=== PATIENT | female | born 1940 | race Caucasian/White ===

== ENCOUNTER → 2019-04-26 | Outpatient (CLI) | payer MEDICARE ==
--- NOTE | 2019-04-26 16:18 | BD ---
EXAMINATION TYPE: Axial Bone Density DATE OF EXAM: 04/26/2019 COMPARISON: NONE CLINICAL HISTORY: 78-year-old female disorder of bone Height: 61.5 Weight: 146.9 FRAX RISK QUESTIONS: Alcohol (3 or more units per day): no Family History (Parent hip fracture): no Glucocorticoids (More than 3mos): no (Ex: prednisone, prednisolone, methylprednisolone, dexamethasone, and hydrocortisone). History of Fracture in Adulthood: yes Secondary Osteoporosis: 1. Type 1 Diabetes: no 2. Hyperthyroidism: no 3. Menopause before 45:yes 4. Malnutrition: no 5. Chronic liver disease: no Rheumatoid Arthritis: no Current Tobacco Use: no RISK FACTORS HISTORY OF: History of Wrist Fracture: left wrist When: 10 years ago Surgery to Spine/Hip(right/left)/Wrist (right/left): left hip replaced When: 8 years ago Family History of Osteoporosis: no Active: yes Diet low in dairy products/other sources of calcium: no Postmenopausal woman: hysterectomy age 30 MEDICATIONS: blood pressure meds x2, cholesterol meds Additional History: EXAM MEASUREMENTS: Bone mineral densitometry was performed using the [employer] System. Bone mineral density as measured about the Lumbar spine is: ----- L1-L4(G/cm2): 1.068 T Score Values are as follows: ----- L2: -0.7 ----- L3: -0.8 ----- L4: -1.6 ----- L1-L4: -0.9 Bone mineral density has: increased 1.5 % since study of: 07.25.2014 Bone mineral density about the L hip (g/cm2): 0.773 T Score values are as follows: -----L Neck: -1.9 -----L Total: -1.5 Bone mineral density has: decreased -1.2 % since study of: 07.25.2014 IMPRESSION: Osteopenia (T Score between -2.5 and -1). There is slightly increased risk of fracture and the patient may be considered for treatment. Re-Screen 2-5 years. NOTE: T-SCORE=SD OF THE YOUNG ADULT MEAN.
--- NOTE | 2019-04-30 10:24 | MM ---
Reason for exam: screening (asymptomatic). Last mammogram was performed 4 years and 9 months ago. History: Patient is postmenopausal and is nulliparous. Physical Findings: A clinical breast exam by your physician is recommended on an annual basis and results should be correlated with mammographic findings. MG 3D Screening Mammo W/Cad Bilateral CC and MLO view(s) were taken. XCCL view(s) were taken of the right breast. Prior study comparison: July 25, 2014, bilateral MG screening mammo w CAD. February 10, 2012, bilateral digital screening mammo w/CAD. There is chronic nodularity in the right breast. No significant changes when compared with prior studies. ASSESSMENT: Benign, BI-RAD 2 RECOMMENDATION: Routine screening mammogram of both breasts in 1 year.
== END | disposition home or self-care (01) ==
LOC: RADMAMWWP 12:36
PROVIDERS: ATTEND Internal Medicine
DX: Z12.31 Encounter for screening mammogram for malignant neoplasm of breast (principal); M85.89 Other specified disorders of bone density and structure, multiple sites
CPT/HCPCS: 77063; 77067; 77080

== ENCOUNTER 2019-09-12 00:55 | Emergency (ER) | payer MEDICARE ==
[2019-09-12 01:02] VITALS: TEMP 98.1
--- NOTE | 2019-09-12 01:08 | ED ---
Chest Pain HPI - General Chief Complaint: Chest Pain Stated Complaint: Chest Pain Time Seen by Provider: 09/12/19 01:06 Source: patient Mode of arrival: ambulatory Limitations: no limitations - History of Present Illness Initial Comments: That he is a pleasant 79-year-old female with no cardiac history who presents to the ER today for evaluation of epigastric and chest discomfort. Patient reports that she was in her usual state of health throughout the day today, she states that she went to bed and she felt some discomfort in her epigastrium and ret rosternal area, she felt some nausea and like she needed to belch. She states this lasted about 15 minutes she got up and walked around it did seem to improve however this is a very atypical thing for her she doesn't usually have any acid reflux or GI symptoms. She has no history of heart problems. She said to come the ER to be evaluated. - Related Data Home Medications Medication Instructions Recorded Confirmed Valsartan/Hydrochlorothiazide 1 tab PO DAILY 10/05/14 10/05/14 [Valsartan-Hctz 160-12.5 mg Tab] Allergies Allergy/AdvReac Type Severity Reaction Status Date / Time amoxicillin Allergy Rash/Hives Verified 09/12/19 01:03 codeine Allergy Nausea & Verified 09/12/19 01:02 Vomiting Review of Systems ROS Statement: Those systems with pertinent positive or pertinent negative responses have been documented in the HPI. ROS Other: All systems not noted in ROS Statement are negative. EKG Findings - EKG Comments: EKG Findings:: EKG was obtained due to complaint of chest discomfort, EKG was obtained at 1:08 AM, rate is a fire rhythm is sinus there is a normal axis, normal intervals NH 166 QRS is 102 QTc is [address] elevations or depressions no evidence of acute ischemia or infarction. Past Medical History Past Medical History: Hyperlipidemia, Hypertension History of Any Multi-Drug Resistant Organisms: None Reported Past Surgical History: Hysterectomy, Orthopedic Surgery Additional Past Surgical History / Comment(s): SHRADDHA KNEE, RT HIP Past Psychological History: No Psychological Hx Reported Smoking Status: Never smoker Past Alcohol Use History: None Reported Past Drug Use History: None Reported General Exam - General Exam Comments Initial Comments: Physical Exam GENERAL: Patient is well-developed and well-nourished. Patient is nontoxic and well- hydrated and is in no distress. HENT: Normocephalic, Atraumatic. EYES: PERRL, EOMI PULMONARY: Unlabored respirations. No audible rales rhonchi or wheezing was noted. CARDIOVASCULAR: There is a regular rate and rhythm without any murmurs gallops or rubs. ABDOMEN: Soft and nontender with normal bowel sounds. SKIN: Skin is clear with no lesions or rashes and otherwise unremarkable. : Deferred NEUROLOGIC: Patient is alert and oriented x3. Moving all extremities spontaneously MUSCULOSKELETAL: Normal extremities with adequate strength and full range of motion. No lower extremity swelling or edema. No calf tenderness. PSYCHIATRIC: Normal psychiatric evaluation. Limitations: no limitations Course Vital Signs 09/12/19 09/12/19 00:59 03:41 Temperature 98.1 F Pulse Rate 89 88 Respiratory 18 16 Rate Blood Pressure 157/90 120/90 O2 Sat by Pulse 100 98 Oximetry Chest Pain MDM - MDM Patient was seen and evaluated history is obtained from patient 79-year-old female who cardiac history presenting with what sounds of a GI type symptoms however we will obtain troponins and EKG to rule out cardiac etiology Chest x-ray was unremarkable EKG is nonischemic Troponin was negative Results were discussed with the patient, I offered disposition options for the patient including admission for evaluation by cardiology, remaining in the emergency department for repeat troponin versus discharge home and outpatient follow-up with her primary care later today. Patient has been chest pain-free since arrival in the emergency department she would prefer at this time to be discharged she will see Dr. Soliz later today. Disposition Clinical Impression: Atypical chest pain Disposition: HOME SELF-CARE Condition: Stable Instructions (If sedation given, give patient instructions): Chest Pain (ED) Is patient prescribed a controlled substance at d/c from ED?: No Referrals: Sukhwinder Soliz MD [Primary Care Provider] - 1-2 days
[2019-09-12 01:45] LABS: Basophils # (A) 0.1 k/uL (0-0.2); Basophils % (A) 1 %; Eosinophils # (A) 0.6 k/uL (0-0.7); Eosinophils % (A) 5 %; HCT 42.9 % (34.0-46.0); HGB 13.8 gm/dL (11.4-16.0); Lymphocytes % (A) 17 %; MCH 30.2 pg (25.0-35.0); MCHC 32.2 g/dL (31.0-37.0); MCV 93.9 fL (80.0-100.0); Monocytes # (A) 0.5 k/uL (0-1.0); Monocytes % (A) 5 %; Neutrophils # (A) 8.4 k/uL (1.3-7.7); Neutrophils % (A) 71 %; Platelet Count 255 k/uL (150-450); RBC 4.57 m/uL (3.80-5.40); RDW 12.7 % (11.5-15.5); WBC 11.9 k/uL (3.8-10.6)
--- NOTE | 2019-09-12 01:46 | XR ---
EXAMINATION TYPE: XR chest 2V DATE OF EXAM: 09/12/2019 COMPARISON: 10/27/2012 HISTORY: Chest pain TECHNIQUE: 2 views FINDINGS: Heart and mediastinum are normal. Lungs are clear. Diaphragm is normal. Thoracic aorta is t ortuous. There is no pleural effusion. There is mild flattening of the diaphragm. Bony thorax is inta ct. IMPRESSION: No active cardiopulmonary disease. There is probably some COPD. No change.
[2019-09-12 01:55] LABS: ALT 21 U/L (4-34); AST 31 U/L (14-36); African American GFR (CKD) >90 (>60 ml/min/1.73 sqM); Albumin 4.2 g/dL (3.5-5.0); Alkaline Phosphatase 73 U/L (38-126); Anion Gap 5 mmol/L; Blood Urea Nitrogen 19 mg/dL (7-17); Calcium 9.9 mg/dL (8.4-10.2); Carbon Dioxide 27 mmol/L (22-30); Chloride 102 mmol/L (98-107); Glucose 107 mg/dL (74-99); Magnesium 2.3 mg/dL (1.6-2.3); Non-African American GFR(CKD) 83 (>60 ml/min/1.73 sqM); Potassium 4.1 mmol/L (3.5-5.1); Sodium 134 mmol/L (137-145); Total Bilirubin 0.3 mg/dL (0.2-1.3); Total Protein 6.5 g/dL (6.3-8.2)
[2019-09-12 02:00] LABS: D-Dimer 0.36 mg/L FEU (<0.60); INR 0.9 (<1.2); Partial Thromboplastin Time 24.1 sec (22.0-30.0); Prothrombin Time 9.6 sec (9.0-12.0)
[2019-09-12 03:41] VITALS: BP 120/90; PULSE 88; RESP 16
== END 2019-09-12 03:56 | disposition home or self-care (01) ==
LOC: EC 00:55
DX: R07.89 Other chest pain (principal); I10 Essential (primary) hypertension; Z88.0 Allergy status to penicillin; Z88.5 Allergy status to narcotic agent; Z79.899 Other long term (current) drug therapy
CPT/HCPCS: 36415; 71046; 80053; 83735; 83880; 84484; 85025; 85379; 85610; 85730; 93005; 99285

== ENCOUNTER → 2021-07-21 | Outpatient (CLI) | payer MEDICARE ==
--- NOTE | 2021-07-21 17:07 | BD ---
EXAMINATION TYPE: Axial Bone Density DATE OF EXAM: 07/21/2021 CLINICAL HISTORY: 80 years year old Female. ICD-10 CODE: M81.0 Age related osteoporosis Height: 60 Weight: 139.7 FRAX RISK QUESTIONS: Alcohol (3 or more units per day): NO Family History (Parent hip fracture): NO Glucocorticoids (More than 3mos): NO History of Fracture in Adulthood: YES Secondary Osteoporosis: 1. Type 1 Diabetes: NO 2. Hyperthyroidism: NO 3. Menopause before 45: YES 4. Malnutrition: NO 5. Chronic liver disease: NO Rheumatoid Arthritis: NO Current Tobacco Use: NO RISK FACTORS HISTORY OF: Hip Fracture (Right/Left): NO Spine Fracture: NO History of Wrist Fracture: LT When: AGE 60 Surgery to Spine/Hip(right/left)/Wrist (right/left): RT HIP REPLACEMENT When: AGE 65 Family History of Osteoporosis: NO Active: YES Diet low in dairy products/other sources of calcium: YES Postmenopausal woman: YES Take estrogen and/or progesterone medications: NO Lost more than 2 inches in height since high school: YES Frequent falls: NO Poor Health: NO Hyperparathyroidism: NO Adrenal Insufficiency: NO MEDICATIONS: Prednisone or other steroids: NO Thyroid Medications:NO Osteoporosis Medications: NO Additional Medications: BP MEDS, CHOLESTEROL MEDS, VIT D, CALCIUM, ZINC, Additional History: EXAM MEASUREMENTS: Bone mineral densitometry was performed using the [employer] System. Bone mineral density as measured about the Lumbar spine is: ----- L1-L4(G/cm2): 1.057 T Score Values are as follows: ----- L1: -1.6 ----- L2: -1.6 ----- L3: -1.2 ----- L4: -0.2 ----- L1-L4: -1.0 Bone mineral density has: INCREASED 1.4 % since study of: 04/26/2019 Bone mineral density about the L hip (g/cm2): 0.752 T Score values are as follows: -----L Neck: -2.1 -----L Total: -1.7 Bone mineral density has: DECREASED 3.5 04/26/2019% since study of: FRAX%s: The graph provided illustrates a 23.1% chance for a major osteoporotic fx and a 6.5% chance f or the hips probability for fx in 10 years time. IMPRESSION: Osteopenia (T Score between -2.5 and -1). There is slightly increased risk of fracture and the patient may be considered for treatment. Re-Screen 2-5 years. NOTE: T-SCORE=SD OF THE YOUNG ADULT MEAN.
--- NOTE | 2021-07-22 12:01 | MM ---
Reason for Exam: Screening (asymptomatic). Last mammogram was performed 2 year(s) and 3 month(s) ago. Patient History: Menarche at age 11. Patient has no children. Left ovary removed at age 54. Right ovary removed at age 54. Hysterectomy at age 30. Postmenopausal. Risk Values: Mariela 5 year model risk: 2.0%. NCI Lifetime model risk: 3.1%. Film Views: Bilateral CC views were taken. Bilateral MLO views were taken. Prior Study Comparison: 02/10/2012 Bilateral Screening Mammogram, [facility]. 07/25/2014 Bilateral Screening Mammogram, [facility]. 04/26/2019 Bilateral Screening Mammogram, [facility]. Tissue Density: There are scattered fibroglandular densities. Findings: Analyzed By CAD. Stable chronic nodularity in the right breast upper outer aspect and centrally. Smaller nodularity in the left breast MLO 26/47 and 50 cc 18/46 anterior to middle depth slightly inner aspect is more prominent from most recent mammogram. Follow-up advised starting with targeted ultrasound of the AB zone inner half left breast now. Overall Assessment: Incomplete: need additional imaging evaluation, BI-RAD 0 Management: Diagnostic Breast Ultrasound of the left breast. A clinical breast exam by your physician is recommended on an annual basis and results should be correlated with mammographic findings. Targeted ultrasound left breast follow-up now. SAMI
== END ==
LOC: RADMAMWWP 14:33
PROVIDERS: ATTEND Internal Medicine
DX: Z12.31 Encounter for screening mammogram for malignant neoplasm of breast (principal); M85.89 Other specified disorders of bone density and structure, multiple sites; Z78.0 Asymptomatic menopausal state; Z90.721 Acquired absence of ovaries, unilateral
CPT/HCPCS: 77063; 77067; 77080

== ENCOUNTER → 2021-07-27 | Outpatient (CLI) | payer MEDICARE ==
--- NOTE | 2021-07-27 11:28 | USB ---
Patient History: Menarche at age 11. Patient has no children. Left ovary removed at age 54. Right ovary removed at age 54. Hysterectomy at age 30. Postmenopausal. Risk Values: Mariela 5 year model risk: 2.0%. NCI Lifetime model risk: 3.1%. Technique: Method: Targeted. Left inner half follow up from mammogram. Prior Study Comparison: 07/25/2014 Bilateral Screening Mammogram, [facility]. 04/26/2019 Bilateral Screening Mammogram, [facility]. 07/21/2021 Bilateral MG 3D screening mammo w/cad, [facility]. Findings: Finding 1: Clustered microcysts. Laterality: Left. Size 7 x 3 x 5 mm. 10 O'clock Quadrant: Upper inner. Depth: Middle. 2 cm cm from nipple. No solid or cystic masses are identified.. Overall Assessment: Probably benign, BI-RAD 3 Management: Diagnostic Mammogram of the left breast in 6 months. Diagnostic Breast Ultrasound of the left breast in 6 months. A clinical breast exam by your physician is recommended on an annual basis and results should be correlated with mammographic findings. Electronically signed and approved by: Tremayne Howard M.D.
== END | disposition home or self-care (01) ==
LOC: RADUSWWP 10:53
PROVIDERS: ATTEND Internal Medicine
DX: R92.8 Other abnormal and inconclusive findings on diagnostic imaging of breast (principal); Z78.0 Asymptomatic menopausal state; Z90.721 Acquired absence of ovaries, unilateral